=== PATIENT | female | born 1955 | race Caucasian/White ===

== ENCOUNTER 2020-02-17 14:38 | Emergency (ER) | payer MEDICARE ==
[~2020-02-17] VITALS: Ht 165.1 cm; Wt 65.8 kg
--- NOTE | 2020-02-17 15:35 | NUR ---
PT IS IN ROOM #2B. DR EMMANUEL EVALUATED THE PT.
--- NOTE | 2020-02-17 17:43 | NUR ---
PT WAS D/C'd TO HOME. D/C INSTRUCTIONS GIVEN TO THE PT BY DR EMMANUEL.
[2020-02-17 17:45] VITALS: BP 135/71
== END 2020-02-17 17:45 | disposition home or self-care (01) ==
LOC: ER 14:38 → TELE3 16:28 → UNDOADMIN 16:28 → ER 17:45
DX: I83.891 Varicose veins of right lower extremity with other complications (principal); Z90.710 Acquired absence of both cervix and uterus
CPT/HCPCS: A4663